=== PATIENT | female | born 1980 | race Caucasian/White ===

== ENCOUNTER 2023-01-15 15:04 | Observation (INO) | payer MEDICAID ==
[2023-01-15] MEDS ORDERED: diphenhydrAMINE 50 MG/ML SDV ONE (15:06)
[2023-01-15] MEDS ORDERED: EPINEPHrine 1 MG/1 ML Amp ONE (15:06)
[2023-01-15] MEDS ORDERED: methylPREDNISolone Sodium Succinate 125 MG/2 ML SDV ONE (15:07)
[2023-01-15] MEDS ORDERED: Famotidine 20 MG/2 ML SDV IVPUSH STA (15:09)
[2023-01-15] MEDS ORDERED: Sodium Chloride 0.9% 10 ML Syringe FLUSH PRN ×2 (15:09→18:55)
[2023-01-15] MEDS ORDERED: Sodium Chloride 0.9% 2.5 ML Syringe FLUSH PRN ×2 (15:09→18:55)
[2023-01-15] MEDS ORDERED: EPINEPHrine 1 MG/1 ML Amp IM STA (15:10)
[2023-01-15] MEDS ORDERED: diphenhydrAMINE 50 MG/ML SDV IVPUSH STA (15:10)
[2023-01-15] MEDS ORDERED: methylPREDNISolone Sodium Succinate 125 MG/2 ML SDV IVPUSH ONE (15:15)
[2023-01-15 15:19] LABS: BASOPHILS PERCENT AUTO 0.2 % (0.0-1.5); EOSINOPHILS ABSOLUTE AUTO 0.2 K/uL (0.0-0.7); EOSINOPHILS PERCENT AUTO 1.6 % (0.0-7.0); HEMATOCRIT 41.9 % (36.0-46.0); HEMOGLOBIN 13.7 g/dL (12.0-16.0); LYMPHOCYTES PERCENT AUTO 25.6 % (16.0-40.0); MEAN CORPUSCULAR HEMOGLOBIN 27.9 pg (27.0-32.0); MEAN CORPUSCULAR HGB CONC 32.7 g/dL (31.0-37.0); MEAN CORPUSCULAR VOLUME 85.3 fL (80.0-98.0); MONOCYTES ABSOLUTE AUTO 1.3 K/uL (0.0-0.8); MONOCYTES PERCENT AUTO 11.4 % (0.0-15.0); NEUTROPHILS ABSOLUTE AUTO 7.1 K/uL (1.4-5.7); NEUTROPHILS PERCENT AUTO 61.2 % (48.0-80.0); NRBC ABSOLUTE 0 K/uL; PLATELET COUNT,PLT 377 K/uL (150-400); RED BLOOD CELL COUNT 4.91 M/uL (4.30-5.90); WHITE BLOOD CELL COUNT,WBC 11.62 K/uL (4.0-11.0)
[2023-01-15 15:43] LABS: A/G RATIO 1.1 (0.9-1.6); BILIRUBIN TOTAL 0.5 mg/dL (0.2-1.0); CALCIUM 9.5 mg/dL (8.5-10.1); CARBON DIOXIDE,CO2 25.5 mmol/L (21.0-32.0); CREATININE 0.7 mg/dL (0.6-1.0); EST CRCL DRUG DOSING (CG) 89.48 mL/min; POTASSIUM,K 3.6 mmol/L (3.5-5.1); PROTEIN TOTAL,TP 7.8 g/dL (6.4-8.2)
[2023-01-15 15:45] LABS: ACETAMINOPHEN <2.0 ug/mL; SALICYLATE 3.7 mg/dL (0.0-20.0)
[2023-01-15 15:46] LABS: ETHANOL BLOOD MEDICAL < 3.0 mg/dL
[2023-01-15 16:03] LABS: INR 1.06 (0.86-1.11)
[2023-01-15] MEDS ORDERED: Iopamidol 755 MG/ML 500 ML Multipack Bottle IVPUSH STA (16:20)
[2023-01-15] MEDS ORDERED: Sodium Chloride 0.9% 1,000 ML IV ONE (16:42)
[2023-01-15] MEDS ORDERED: LORazepam 2 MG/ML SDV IVPUSH ONE (16:42)
[2023-01-15 16:50] LABS: BASE EXCESS VENOUS -4.7 (-2.0-3.0); PH,VENOUS 7.35 (7.31-7.41)
[2023-01-15 17:01] LABS: AMPHETAMINES SCREEN, URINE PRESUMPTIVE POSITIVE (CUTOFF=500); BARBITURATE SCREEN,URINE NEGATIVE (CUTOFF=200); BENZODIAZEPINES SCREEN,URINE NEGATIVE (CUTOFF=150); BUPRENORPHINE SCREEN,URINE NEGATIVE (CUTOFF=10); METHADONE SCREEN, URINE NEGATIVE (CUTOFF=200); METHAMPHETAMINES SCREEN, URINE PRESUMPTIVE POSITIVE (CUTOFF=500); OXYCODONE SCREEN,URINE NEGATIVE (CUT0FF=100); PCP SCREEN,URINE NEGATIVE (CUTOFF=25); PROPOXYPHENE SCREEN,URINE NEGATIVE (CUTOFF=300); THC SCREEN,URINE 20 NG/ML PRESUMPTIVE POSITIVE (CUTOFF=50)
[2023-01-15] MEDS: Aspirin 81 MG Tab.Chew PO ONE ×2 (17:47→18:20)
[2023-01-15] MEDS ORDERED: Ondansetron 4 MG/2 ML SDV IVPUSH PRN (18:55)
[2023-01-15] MEDS ORDERED: Polyethylene Glycol 3350 Powder 17 GM Packet PO PRN (18:55)
[2023-01-15] MEDS ORDERED: Acetaminophen 325 MG Tab PO PRN (18:55)
[2023-01-15] MEDS ORDERED: Albuterol/Ipratropium 3.0-0.5 MG/3 ML Neb Soln NEB PRN (18:55)
[2023-01-15] MEDS ORDERED: Aspirin 81 MG Tab.Chew PO ONE (19:02)
[2023-01-16 05:39] LABS: HEMOGLOBIN 12.4 g/dL (12.0-16.0); LYMPHOCYTES ABSOLUTE AUTO 1.1 K/uL (0.6-2.4); LYMPHOCYTES PERCENT AUTO 7.6 % (16.0-40.0); MEAN CORPUSCULAR HEMOGLOBIN 27.7 pg (27.0-32.0); MEAN CORPUSCULAR HGB CONC 32.6 g/dL (31.0-37.0); MONOCYTES PERCENT AUTO 6.8 % (0.0-15.0); NEUTROPHILS PERCENT AUTO 85.6 % (48.0-80.0); NRBC ABSOLUTE 0 K/uL; PLATELET COUNT,PLT 335 K/uL (150-400); RED BLOOD CELL COUNT 4.47 M/uL (4.30-5.90); WHITE BLOOD CELL COUNT,WBC 14.04 K/uL (4.0-11.0)
[2023-01-16 06:03] LABS: CALCIUM 9.1 mg/dL (8.5-10.1); CARBON DIOXIDE,CO2 24.4 mmol/L (21.0-32.0); CREATININE 0.6 mg/dL (0.6-1.0); EST CRCL DRUG DOSING (CG) 104.4 mL/min; MAGNESIUM 1.8 mg/dL (1.8-2.4); POTASSIUM,K 4.1 mmol/L (3.5-5.1)
[2023-01-16] MEDS ORDERED: LORazepam 0.5 MG Tab PO ONE (11:54)
[2023-01-16] MEDS ORDERED: Gadobenate Dimeglumine 529 MG/ML 20 ML SDV IVPUSH STA (13:32)
[2023-01-16] MEDS ORDERED: Aspirin 325 MG Tab PO SCH (18:00)
== END 2023-01-16 21:40 | disposition left against medical advice (07) ==
LOC: MW.ED 15:04 → MW.MS 17:48
PROVIDERS: ADMIT Family Medicine; ATTEND Family Medicine
DX: I72.0 Aneurysm of carotid artery (principal); K14.3 Hypertrophy of tongue papillae; R47.1 Dysarthria and anarthria; F12.90 Cannabis use, unspecified, uncomplicated; F41.9 Anxiety disorder, unspecified; Z91.048 Other nonmedicinal substance allergy status; Z88.5 Allergy status to narcotic agent; Z79.899 Other long term (current) drug therapy
CPT/HCPCS: 36415; 70450; 70496; 70498; 70544; 70549; 70553; 80048; 80053; 80143; 80179; 80305; 80307; 82803; 82947; 83735; 84484; 85025; 85384; 85610; 86850; 86900; 86901; 93005; 96361; 96372; 96374; 96375; 99291; A9270; A9577; G0378; J0171; J1200; J2060; J2930; J3490; J7030; Q9967; 93010